=== PATIENT | female | born 1995 | race Caucasian/White ===

== ENCOUNTER 2017-08-21 15:19 | Emergency (ER) | payer OTHER | END 2017-08-21 17:29 | disposition home or self-care (01) | LOC: M ED 15:19 | DX: S61.431A Puncture wound without foreign body of right hand, initial encounter (principal); W54.0XXA Bitten by dog, initial encounter; Y92.018 Other place in single-family (private) house as the place of occurrence of the external cause; Y93.89 Activity, other specified; Y99.8 Other external cause status | CPT/HCPCS: 73130 ==

== ENCOUNTER → 2018-03-04 | Outpatient (CLI) | payer OTHER ==
[~2018-03-04] MED LIST: E-Z-GAS II EFFERVESCENT PACKET (SODIUM BICARB./CITRIC ACID/SIMETHICONE) As Ordered; E-Z-HD 98% w/w 340GM SUSP BTL As Ordered; E-Z-PAQUE 96% w/w SUSP 176GM BTL As Ordered
[2018-03-04 11:02] LABS: CONTROL LINE UCG INT CTR LINE PRESENT; URINE PREG TEST NEGATIVE (NEGATIVE)
[2018-03-04 11:26] LABS: C REACTIVE PROTEIN QUANTITATIV < 0.30 MG/DL (0.00-0.30); LIPASE 105 U/L (73-393)
[2018-03-05 10:15] LABS: TISSUE TRANSGLUTAMINASE IgA <2 U/mL (0-3)
[2018-03-12 14:33] LABS: H PYLORI STOOL ANTIGEN Negative (Negative)
[2018-03-12 14:33] LABS: CALPROTECTIN STOOL <16 ug/g (0-120); FATS NEUTRAL Normal (.); FATS TOTAL Normal (.)
== END ==
LOC: M RAD 10:13
DX: R10.84 Generalized abdominal pain (principal); R19.4 Change in bowel habit
CPT/HCPCS: 76700

== ENCOUNTER → 2018-03-24 | Outpatient (REF) | payer OTHER | LOC: M LAB REF 18:28 | DX: E04.1 Nontoxic single thyroid nodule (principal) ==

== ENCOUNTER 2018-06-06 13:18 | Emergency (ER) | payer OTHER ==
[2018-06-06] MEDS: NS 1,000 ML IV (14:15)
[2018-06-06] MEDS: MORPHINE 4 MG/ML 1ML VIAL/SYRINGE (J2270) IV (14:16)
[2018-06-06] MEDS: ONDANSETRON 4MG/2ML VIAL (J2405) IV (14:16)
[2018-06-06 14:32] LABS: BASO % 0.1 % (0.0-1.0); EOS % 0.1 % (0.0-3.0); HEMATOCRIT 35.8 % (36.0-47.0); HEMOGLOBIN 12.4 g/dl (12.0-15.5); IMMATURE GRANULOCYTE % 0.4 % (0-3.0); LYMPH # 0.9 10^3/uL (1.5-6.5); LYMPH % 12.2 % (24.0-44.0); MEAN CORPUSCULAR HEMOGLOBIN 30.5 pg (27.0-33.0); MEAN CORPUSCULAR HGB CONC 34.6 g/dl (32.0-36.5); MONO # 0.3 10^3/uL (0.0-0.8); MONO % 3.8 % (0.0-5.0); NEUTROPHILS # 6.1 10^3/uL (1.8-7.7); NEUTROPHILS % 83.4 % (36.0-66.0); PLATELET COUNT, AUTOMATED 191 10^3/uL (150-450); RED BLOOD COUNT 4.07 10^6/uL (4.00-5.40); WHITE BLOOD COUNT 7.3 10^3/uL (4.0-10.0)
[2018-06-06 15:02] LABS: CONTROL LINE HCG INT CTR LINE PRESENT; HCG, SERUM QUALITATIVE NEGATIVE (NEGATIVE)
[2018-06-06 16:25] LABS: KETONE, URINE AUTO RFX 1+ mg/dL (NEGATIVE); LEUKOCYTE ESTERASE UR AUTO RFX NEGATIVE (NEGATIVE); MUCUS, URINE RFX SMALL (NEGATIVE); NITRITE, URINE AUTO RFX NEGATIVE (NEGATIVE); RBC, URINE AUTO RFX 0 /HPF (0-3); SQUAM EPITHELIAL CELL UR AURFX 0 /HPF (0-6); WBC, URINE AUTO RFX 0 /HPF (0-3)
== END 2018-06-06 16:24 | disposition home or self-care (01) ==
LOC: M ED 13:18
DX: N92.0 Excessive and frequent menstruation with regular cycle (principal)
CPT/HCPCS: J2270

== ENCOUNTER → 2018-06-21 | Outpatient (CLI) | payer OTHER ==
[~2018-06-21] MED LIST changes: -E-Z-GAS II EFFERVESCENT PACKET (SODIUM BICARB./CITRIC ACID/SIMETHICONE) As Ordered; -E-Z-HD 98% w/w 340GM SUSP BTL As Ordered; -E-Z-PAQUE 96% w/w SUSP 176GM BTL As Ordered; +PROHANCE 279.3MG/ML 15ML VIAL (A9576) As Ordered
== END ==
LOC: M RAD 16:17
DX: N96 Recurrent pregnancy loss (principal)
CPT/HCPCS: A9576

== ENCOUNTER 2018-12-23 13:24 | Emergency (ER) | payer OTHER ==
[~2018-12-23] VITALS: Ht 167.6 cm; Wt 55.0 kg
[~2018-12-23 13:24] MED LIST changes: +ALIG4CAP PO; +APAP325T4 PO; +AUGM875T28 PO; +CBD OIL PO; +D 50CAP PO; +HYDR-3715 PO; +HYDR200T3 PO; -PROHANCE 279.3MG/ML 15ML VIAL (A9576) As Ordered; +TURM500C PO
[2018-12-23] MEDS ORDERED: HYDR-3713 PO (13:49)
[2018-12-23] MEDS ORDERED: NS 1,000 ML IV ONE (14:00)
[2018-12-23 14:38] LABS: BASO % 0.5 % (0.0-1.0); EOS # 0.1 10^3/uL (0.0-0.50); EOS % 2.3 % (0.0-3.0); HEMATOCRIT 34.6 % (36.0-47.0); LYMPH # 1.5 10^3/uL (1.5-6.5); LYMPH % 35.3 % (24.0-44.0); MEAN CORPUSCULAR HEMOGLOBIN 30.5 pg (27.0-33.0); MEAN CORPUSCULAR HGB CONC 34.7 g/dl (32.0-36.5); MEAN CORPUSCULAR VOLUME 87.8 fl (80.0-96.0); MONO # 0.3 10^3/uL (0.0-0.8); MONO % 7.4 % (0.0-5.0); NEUTROPHILS # 2.4 10^3/uL (1.8-7.7); NEUTROPHILS % 54.3 % (36.0-66.0); PLATELET COUNT, AUTOMATED 200 10^3/uL (150-450); RED BLOOD COUNT 3.94 10^6/uL (4.00-5.40); WHITE BLOOD COUNT 4.3 10^3/uL (4.0-10.0)
[2018-12-23 15:22] LABS: BLOOD UREA NITROGEN 15 MG/DL (7-18); CALCIUM LEVEL 8.5 MG/DL (8.5-10.1); CARBON DIOXIDE LEVEL 27 MEQ/L (21-32); CHLORIDE LEVEL 110 MEQ/L (98-107); CK-MB VALUE MASS < 1.0 NG/ML (<3.6); CPK CREATINE PHOSPHOKINASE 76 U/L (26-192); GLOMERULAR FILTRATION RATE > 60.0 (>60); GLUCOSE, FASTING 83 MG/DL (70-100); MAGNESIUM LEVEL 2.2 MG/DL (1.8-2.4); MB/CK RELATIVE INDEX 1.32 (< OR =4); POTASSIUM SERUM 3.8 MEQ/L (3.5-5.1); SODIUM LEVEL 141 MEQ/L (136-145); TROPONIN I < 0.02 NG/ML (< 0.10)
[2018-12-23 16:37] VITALS: BP 105/56
--- NOTE | 2018-12-23 19:49 | ECGEPIP ---
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
[2019-01-05] MEDS ORDERED: [UNRECOGNIZED DRUG - OTHER] PO (09:43)
== END 2018-12-23 16:38 | disposition home or self-care (01) ==
LOC: M ED 13:24
DX: R00.2 Palpitations (principal); R42 Dizziness and giddiness

== ENCOUNTER 2019-03-12 15:30 | Emergency (ER) | payer OTHER ==
[~2019-03-12] VITALS: Ht 167.6 cm; Wt 53.6 kg
[~2019-03-12 15:30] MED LIST changes: +HYDR-3713 PO; +[UNRECOGNIZED DRUG - OTHER] PO
[2019-03-12 15:42] VITALS: BP 115/66
[2019-03-12] MEDS ORDERED: MIDO5TA PO (15:45)
[2019-03-12 16:22] LABS: BASO % 0.3 % (0.0-1.0); EOS % 0.5 % (0.0-3.0); HEMATOCRIT 34.7 % (36.0-47.0); HEMOGLOBIN 11.8 g/dl (12.0-15.5); LYMPH # 1.2 10^3/uL (1.5-6.5); LYMPH % 18.3 % (24.0-44.0); MEAN CORPUSCULAR HEMOGLOBIN 29.4 pg (27.0-33.0); MEAN CORPUSCULAR VOLUME 86.5 fl (80.0-96.0); MONO # 0.3 10^3/uL (0.0-0.8); MONO % 4.6 % (0.0-5.0); PLATELET COUNT, AUTOMATED 221 10^3/uL (150-450); RED BLOOD COUNT 4.01 10^6/uL (4.00-5.40); WHITE BLOOD COUNT 6.6 10^3/uL (4.0-10.0)
[2019-03-12 16:52] LABS: ALBUMIN 4.6 GM/DL (3.2-5.2); ALT/SGPT 12 U/L (12-78); BILIRUBIN,DIRECT 0.2 MG/DL (0.0-0.2); BILIRUBIN,TOTAL 0.8 MG/DL (0.2-1.0); BLOOD UREA NITROGEN 13 MG/DL (7-18); CALCIUM LEVEL 9.1 MG/DL (8.5-10.1); CARBON DIOXIDE LEVEL 22 MEQ/L (21-32); CHLORIDE LEVEL 106 MEQ/L (98-107); CREATININE FOR GFR 0.78 MG/DL (0.55-1.30); GLOMERULAR FILTRATION RATE > 60.0 (>60); GLUCOSE, FASTING 85 MG/DL (70-100); LIPASE 62 U/L (73-393); POTASSIUM SERUM 3.9 MEQ/L (3.5-5.1); SODIUM LEVEL 141 MEQ/L (136-145); TOTAL PROTEIN 8.2 GM/DL (6.4-8.2)
== END 2019-03-12 17:30 | disposition left against medical advice (07) ==
LOC: M ED 15:30
DX: R10.9 Unspecified abdominal pain (principal); Z53.21 Procedure and treatment not carried out due to patient leaving prior to being seen by health care provider

== ENCOUNTER 2019-07-13 14:19 | Emergency (ER) | payer OTHER ==
[~2019-07-13] VITALS: Ht 172.7 cm; Wt 54.5 kg
[~2019-07-13 14:19] MED LIST changes: +MIDO5TA PO
[2019-07-13 15:09] LABS: BASO % 0.3 % (0.0-1.0); EOS % 0.4 % (0.0-3.0); HEMATOCRIT 34.8 % (36.0-47.0); LYMPH # 1.2 10^3/uL (1.5-5.0); LYMPH % 16.4 % (24.0-44.0); MEAN CORPUSCULAR HEMOGLOBIN 29.8 pg (27.0-33.0); MEAN CORPUSCULAR HGB CONC 34.5 g/dl (32.0-36.5); MEAN CORPUSCULAR VOLUME 86.4 fl (80.0-96.0); MONO # 0.4 10^3/uL (0.0-0.8); MONO % 5.5 % (0.0-5.0); NEUTROPHILS # 5.4 10^3/uL (1.5-8.5); NEUTROPHILS % 77.1 % (36.0-66.0); PLATELET COUNT, AUTOMATED 206 10^3/uL (150-450); RED BLOOD COUNT 4.03 10^6/uL (4.00-5.40)
[2019-07-13 15:36] LABS: ALBUMIN 4.5 GM/DL (3.2-5.2); ALT/SGPT 15 U/L (12-78); BILIRUBIN,DIRECT 0.1 MG/DL (0.0-0.2); BILIRUBIN,TOTAL 0.4 MG/DL (0.2-1.0); BLOOD UREA NITROGEN 13 MG/DL (7-18); CARBON DIOXIDE LEVEL 23 MEQ/L (21-32); CHLORIDE LEVEL 107 MEQ/L (98-107); CREATININE FOR GFR 0.76 MG/DL (0.55-1.30); GLOMERULAR FILTRATION RATE > 60.0 (>60); GLUCOSE, FASTING 104 MG/DL (70-100); LIPASE 76 U/L (73-393); POTASSIUM SERUM 3.3 MEQ/L (3.5-5.1); SODIUM LEVEL 141 MEQ/L (136-145); TOTAL PROTEIN 7.9 GM/DL (6.4-8.2)
[2019-07-13] MEDS ORDERED: IBUP80TA PO (15:50)
[2019-07-13] MEDS ORDERED: SYNT25TA PO (15:50)
[2019-07-13] MEDS ORDERED: KETAMINE HCL IV ONE (17:00)
[2019-07-13] MEDS ORDERED: NS IV ONE (17:00)
[2019-07-13] MEDS ORDERED: ONDANSETRON 4MG/2ML VIAL (J2405) IV ONE (17:45)
[2019-07-13] MEDS ORDERED: NORCO, ANEXSIA 5/325MG TABLET (HYDROcodone/ACETAMINOPHEN) PO ONE (18:15)
--- NOTE | 2019-07-13 18:30 | REPVR ---
PROCEDURE INFORMATION: Exam: US Pelvis Complete, Transabdominal Exam date and time: 07/13/2019 4:51 PM Age: 23 years old Clinical history: Pelvic pain; Additional info: Pelvic pain; ? Uterine fibroids vs endometriosis TECHNIQUE: Imaging protocol: Real-time transabdominal pelvic ultrasound with image documentation. Complete exam. COMPARISON: US PELVIC NON-OB COMPLETE 06/06/2018 2:58 PM FINDINGS: Uterus/cervix: The uterus measures 7.3 CM in length by 3.1 CM in AP dimension by 3.9 CM in transverse dimension. The endometrium is markedly thickened measuring 1.4 CM and possibly secretory endometrium. Right adnexa: The right ovary measures 3.3 CM in length by 2.5 cm thickness. There is vascular flow right ovary with no evidence of torsion. Left adnexa: The left ovary measures 4.6 CM in length by 2.5 CM in thickness. There is vascular flow of the left ovary with no evidence of torsion. There is an oval complex cyst of the left ovary which measures 3.6 CM by 2.7 CM. There is an area of low level echoes and an area of multiple septations within. Considerations would include endometrioma, hemorrhagic functional cyst, cystadenoma or cystadenocarcinoma. Sequential followup would be important. Bladder: There is a small amount of echogenic debris in the dependent portion of the urinary bladder. IMPRESSION: 1. Small amount of echogenic debris in the dependent portion of the urinary bladder could be sediment. 2. 3.6 CM by 2.7 CM complex cyst of the left ovary. Considerations include endometrioma, hemorrhagic follicular cyst, cystadenoma or cystadenocarcinoma. Recommend sequential followup exams. Electronically signed by: Hermes Dickerson On 07/13/2019 18:30:13 PM
[2019-07-13 18:50] VITALS: BP 115/73
[2019-07-13] MEDS ORDERED: NORC1TAB7 PO (19:14)
[2019-07-13] MEDS ORDERED: MACR100C43 PO (19:14)
--- NOTE | 2019-07-14 10:39 | ED PDOC ---
Post-Departure Follow-Up ft chica azevedo faxed formal report of pelvic us for fu Corry Mccoy MD Jul 14, 2019 10:39
== END 2019-07-13 19:46 | disposition home or self-care (01) ==
LOC: M ED 14:19
DX: N39.0 Urinary tract infection, site not specified (principal); N83.299 Other ovarian cyst, unspecified side; G89.29 Other chronic pain; R10.2 Pelvic and perineal pain; F41.9 Anxiety disorder, unspecified; F32.9 Major depressive disorder, single episode, unspecified; K58.9 Irritable bowel syndrome, unspecified; J45.909 Unspecified asthma, uncomplicated; I49.8 Other specified cardiac arrhythmias; Z79.899 Other long term (current) drug therapy; Z88.5 Allergy status to narcotic agent; Z88.8 Allergy status to other drugs, medicaments and biological substances
CPT/HCPCS: 76830; 76856; 80048; 80076; 81001; 83690; 84702; 85025; 87086; 93976; 94760; 96365; 96375; 99284; J2405

== ENCOUNTER 2019-10-18 06:15 | Day surgery (SDC) | payer OTHER ==
[~2019-10-18] VITALS: Ht 172.7 cm; Wt 55.7 kg
[~2019-10-18 06:15] MED LIST changes: +IBUP80TA PO; +LIDOCAINE 1% MDV 20ML VIAL SQ PRN; +MACR100C43 PO; +NORC1TAB7 PO; +NORT10CA2 PO; +SYNT25TA PO; +SYNT75TA PO
[2019-10-18 06:47] LABS: HEMATOCRIT 34.4 % (36.0-47.0); HEMOGLOBIN 11.5 g/dl (12.0-15.5)
[2019-10-18] MEDS ORDERED: METHYLENE BLUE 0.5% (5MG/ML) 10 ML AMP (PROVAYBLUE)(Q9968 PER 1MG) As Ordered ONE (06:54)
[2019-10-18] MEDS ORDERED: LR 1,000 ML IV ONE (07:00)
[2019-10-18] MEDS ORDERED: propofoL 200 MG/20 ML VIAL As Ordered ONE (07:14)
[2019-10-18] MEDS ORDERED: LIDOCAINE 2% INJ 100 MG/5 ML SDV (FOR ANES.) As Ordered ONE (07:14)
[2019-10-18] MEDS ORDERED: ROCURONIUM BROMIDE 50 MG/5 ML VIAL As Ordered ONE (07:14)
[2019-10-18] MEDS ORDERED: MIDAZOLAM INJ 2 MG/2 ML VIAL (J2250) As Ordered ONE (07:15)
[2019-10-18] MEDS ORDERED: fentaNYL 250 MCG/5 ML INJECTION (J3010) As Ordered ONE (07:15)
[2019-10-18 07:16] LABS: HCG, SERUM QUALITATIVE NEGATIVE (NEGATIVE)
[2019-10-18] MEDS ORDERED: BUPIVACAINE HCL 0.25% 30 ML VIAL As Ordered ONE (07:34)
[2019-10-18] MEDS ORDERED: dexameTHASONE 4 MG/ML 1ML VIAL (J1100) As Ordered ONE (08:06)
[2019-10-18] MEDS ORDERED: ONDANSETRON 4MG/2ML VIAL (J2405) As Ordered ONE (08:06)
[2019-10-18] MEDS ORDERED: KETOROLAC 60 MG/2 ML VIAL (J1885) As Ordered ONE (08:06)
[2019-10-18] MEDS ORDERED: METOCLOPRAMIDE INJ 10MG/2ML VIAL (J2765) As Ordered ONE (08:06)
[2019-10-18] MEDS ORDERED: ACETAMINOPHEN 1000MG 100ML IV BTL (OFIRMEV) (J0131 PER 10MG) As Ordered ONE (08:07)
[2019-10-18] MEDS ORDERED: SUGAMMADEX SODIUM 500 MG/5 ML VIAL (BRIDION) As Ordered ONE (08:41)
[2019-10-18] MEDS ORDERED: fentaNYL 100 MCG/2 ML INJECTION (J3010) As Ordered ONE (09:04)
[2019-10-18] MEDS ORDERED: LR 1,000 ML IV SCH (09:15)
[2019-10-18] MEDS ORDERED: oxyCODONE 5MG TAB PO PRN (09:15)
[2019-10-18] MEDS ORDERED: fentaNYL 100 MCG/2 ML INJECTION (J3010) IV PRN (09:15)
[2019-10-18] MEDS ORDERED: ONDANSETRON 4MG/2ML VIAL (J2405) IV PRN (09:15)
[2019-10-18 11:10] VITALS: BP 103/57
--- NOTE | 2019-10-19 10:15 | RO ---
DATE OF OPERATION: 10/18/2019 STAFF SURGEON: Cherise Mejia MD AUTO BODY CUSTOMIZER: Louis Jarrell DO CLINICAL SERVICE: Gynecology INDICATION FOR OPERATION: Venita is a 24-year-old G3, P-0-0-3-0 with a history of severe dysmenorrhea, pelvic pain, and dyspareunia, as well as recurrent loss and recently infertility. We discussed trial of Lupron, which she declined in the office as she desired definitive diagnosis of possible endometriosis given that her dysmenorrhea has taken her to the emergency room (ER) on several occasions. PREOPERATIVE DIAGNOSES: Dysmenorrhea, pelvic pain, dyspareunia, recurrent loss, infertility. POSTOPERATIVE DIAGNOSES: Dysmenorrhea, pelvic pain, dyspareunia, recurrent loss, infertility. MATERIAL FORWARDED TO THE LABORATORY: 1. Small left paratubal cyst. 2. Biopsy of peritoneum in the posterior cul-de-sac. DESCRIPTION OF FINDINGS: Laparoscopic findings included a normal-appearing liver edge and gallbladder, normal-appearing uterus, fallopian tubes, and ovaries. There was a small left para-ovarian cyst, and there was a small area of dark spots in the right aspect of the posterior cul-de-sac possibly consistent with endometriosis. So, a biopsy was performed. However, there was no other evidence of anything that looked like endometriosis within the pelvis. The posterior cul-de-sac is otherwise clear. There were no windows. There were no adhesions. No white scarring or any other evidence of endometriosis. INFECTION CLASSIFICATION: 2. ESTIMATED BLOOD LOSS: 10 mL. URINE OUTPUT: 150 mL. INTRAVENOUS (IV) FLUIDS: 1700 mL of lactated Ringer. OPERATION PERFORMED: Operative laparoscopy with chromopertubation. DESCRIPTION OF OPERATION: After obtaining informed consent, the patient was taken to the operating room. General endotracheal anesthesia was established, and she was placed in low lithotomy position. The patient was prepped and draped in usual sterile fashion. She was placed in Trendelenburg position. A Vickers catheter was placed. Portales speculum was placed in the vagina, and visualization of the cervix was obtained. Anterior lip of the cervix was grasped with a single-tooth tenaculum. Cervix was sequentially dilated using Hanks dilators. Uterus sounded to 8 cm. The ABDIFATAH uterine manipulator was placed through the cervix into the uterus and the balloon inflated. Tenaculum was removed. Site hemostasis observed, and the bivalve speculum was removed. At that point, she was taken out of Trendelenburg position, and a 5-mm incision was made in the infraumbilical fold beneath the subcutaneous tissue after anesthetizing with 0.25% Marcaine. Alethea clamp was used to spread the subcutaneous tissue. Lower abdominal wall was manually grabbed and lifted up, and an Optiview trocar was placed at a 90-degree angle. Laparoscope was advanced through the port, and intra-abdominal placement was confirmed with no injury noted below the point of entry. Continuous flow carbon dioxide began to establish a pneumoperitoneum at 15 mmHg pressure. At that point, we placed our two other trocars. We made 5-mm incisions in both right lower quadrant and left lower quadrant, placing the 5-mm trocars under direct visualization after anesthetizing with 0.25% Marcaine. Pelvic and abdominal survey were conducted beginning at the anterior cul-de-sac and anterior portion of the uterus, which were completely normal in appearance. Left and right fallopian tubes, round ligaments, broad ligaments, and ovaries were observed with normal appearance. However, there was a very small left para-ovarian cyst, which was removed with monopolar scissors and taken up out of the port. Posterior cul-de-sac was overall normal. There was a very small area of a few little dots that were black in color, possibly consistent with blood vessel versus endometriosis. So, a biopsy was performed at that area using the monopolar scissors. It was removed up through the port and sent to pathology. A couple areas on the peritoneum at that point were gently bleeding, so the monopolar scissors were used to touch those areas and cauterize, and there was complete hemostasis noted. Survey of upper abdomen revealed normal liver edge and gallbladder. The appendix was not visualized. At that point, we performed chromopertubation with normal saline with methylene blue using a large syringe attached to the ABDIFATAH uterine manipulator and pushing the dye through. Observing laparoscopically, we noted efflux of the dye from both of the fallopian tubes. The right was initial and brisk, and over time we also noted this through the left fallopian tube, as well. At that point, we suctioned out the methylene blue dye from the pelvis and irrigated copiously and suctioned all remaining fluid, and then we removed our ports under direct visualization observing them to be hemostatic and released the pneumoperitoneum prior to removing the umbilical port. Incisions were reapproximated with 4-0 Monocryl and Dermabond. All instruments were removed from the vagina. The Vickers catheter was removed. The patient was returned to supine position, and all counts were correct times two. The patient tolerated the procedure well and was taken to the recovery room after being awoken from general anesthesia in stable condition. IMAN
== END 2019-10-18 11:42 | disposition home or self-care (01) ==
LOC: M SDC 06:15
PROVIDERS: ATTEND Obstetrics & Gynecology
DX: N83.202 Unspecified ovarian cyst, left side (principal); N80.9 Endometriosis, unspecified; N97.9 Female infertility, unspecified; R10.2 Pelvic and perineal pain; N94.10 Unspecified dyspareunia; E03.9 Hypothyroidism, unspecified; K58.8 Other irritable bowel syndrome; K21.9 Gastro-esophageal reflux disease without esophagitis; Q79.60 Ehlers-Danlos syndrome, unspecified; Z88.5 Allergy status to narcotic agent; Z88.8 Allergy status to other drugs, medicaments and biological substances
CPT/HCPCS: 36415; 58350; 58662; 84703; 85014; 85018; 86850; 86900; 86901; 88305; J0131; J1100; J1885; J2250; J2405; J2765; J3010; Q9968

== ENCOUNTER 2019-11-04 16:31 | Emergency (ER) | payer OTHER ==
[~2019-11-04] VITALS: Ht 172.7 cm; Wt 54.5 kg
[~2019-11-04 16:31] MED LIST changes: -LIDOCAINE 1% MDV 20ML VIAL SQ PRN
[2019-11-04] MEDS ORDERED: HYDR-3713 PO (16:48)
[2019-11-04] MEDS ORDERED: IMIT50TA PO (16:48)
[2019-11-04] MEDS ORDERED: MIDO10TA PO (16:48)
[2019-11-04] MEDS ORDERED: ONDA-83 PO (16:48)
[2019-11-04] MEDS ORDERED: OXYC-517 PO (16:48)
[2019-11-04] MEDS ORDERED: ALBUTEROL 90 MCG/ACT 8GM HFA INHALER INH ONE (17:30)
[2019-11-04 17:37] LABS: BASO % 0.2 % (0.0-1.0); EOS % 0.1 % (0.0-3.0); HEMATOCRIT 33.7 % (36.0-47.0); HEMOGLOBIN 11.5 g/dl (12.0-15.5); LYMPH # 1.1 10^3/uL (1.5-5.0); LYMPH % 7.9 % (24.0-44.0); MEAN CORPUSCULAR HEMOGLOBIN 30.2 pg (27.0-33.0); MEAN CORPUSCULAR HGB CONC 34.1 g/dl (32.0-36.5); MEAN CORPUSCULAR VOLUME 88.5 fl (80.0-96.0); MONO # 0.5 10^3/uL (0.0-0.8); MONO % 3.3 % (0.0-5.0); NEUTROPHILS # 11.9 10^3/uL (1.5-8.5); PLATELET COUNT, AUTOMATED 194 10^3/uL (150-450); RED BLOOD COUNT 3.81 10^6/uL (4.00-5.40); WHITE BLOOD COUNT 13.5 10^3/uL (4.0-10.0)
[2019-11-04 18:01] LABS: INFLUENZA A AMPLIFICATION NEGATIVE (NEGATIVE); INFLUENZA B AMPLIFICATION NEGATIVE (NEGATIVE)
[2019-11-04] MEDS ORDERED: AZITHROMYCIN 250 MG TAB PO ONE (20:15)
[2019-11-04] MEDS ORDERED: AZIT-12 PO (20:48)
[2019-11-04] MEDS ORDERED: LEVAINH INH (20:48)
[2019-11-04] MEDS ORDERED: LEVA12INH INH (20:48)
[2019-11-04 20:55] VITALS: BP 95/65
--- NOTE | 2019-11-05 13:41 | REP ---
REASON: Dyspnea. PRIORS: None. TWO-VIEW CHEST: FINDINGS: The superior mediastinal structures are midline. The cardiac silhouette is unremarkable in size, shape, and position. The diaphragmatic surfaces of the lungs are regular, and the costophrenic angles are clear. The pulmonary yap are clear. The imaged osseous structures are intact. IMPRESSION: There is no acute cardiopulmonary disease. Unreviewed
== END 2019-11-04 20:58 | disposition home or self-care (01) ==
LOC: M ED 16:31
DX: J20.9 Acute bronchitis, unspecified (principal); J45.909 Unspecified asthma, uncomplicated; R51 Headache; E03.9 Hypothyroidism, unspecified; F41.9 Anxiety disorder, unspecified; F32.9 Major depressive disorder, single episode, unspecified; N80.9 Endometriosis, unspecified; I49.8 Other specified cardiac arrhythmias; Z79.899 Other long term (current) drug therapy; Z91.89 Other specified personal risk factors, not elsewhere classified; Z88.8 Allergy status to other drugs, medicaments and biological substances; Z88.5 Allergy status to narcotic agent

== ENCOUNTER 2020-01-18 13:33 | Outpatient (CLI) | payer OTHER ==
[~2020-01-18] VITALS: Ht 172.7 cm; Wt 54.9 kg
[~2020-01-18 13:33] MED LIST changes: +AZIT-12 PO; +IMIT50TA PO; +LEVA12INH INH; +LEVAINH INH; +MIDO10TA PO; +ONDA-83 PO; +OXYC-517 PO
[2020-01-18] MEDS ORDERED: LR 1,000 ML IV SCH (13:45)
[2020-01-18 13:47] VITALS: BP 108/61
[2020-01-18 16:10] VITALS: BP 92/48
== END 2020-01-18 16:10 | disposition home or self-care (01) ==
LOC: M INFU 13:33
PROVIDERS: ATTEND Obstetrics & Gynecology
DX: O99.411 Diseases of the circulatory system complicating pregnancy, first trimester (principal); I49.8 Other specified cardiac arrhythmias; O99.89 Other specified diseases and conditions complicating pregnancy, childbirth and the puerperium; R55 Syncope and collapse; Z3A.11 11 weeks gestation of pregnancy

== ENCOUNTER 2020-02-01 12:57 | Outpatient (CLI) | payer OTHER ==
[~2020-02-01] VITALS: Ht 172.7 cm; Wt 54.9 kg
[2020-02-01 13:00] VITALS: BP 101/57
[2020-02-01] MEDS ORDERED: LACTATED RINGER'S 1000 ML IV ONE (13:15)
[2020-02-01 15:40] VITALS: BP 95/52
== END 2020-02-01 15:40 | disposition home or self-care (01) ==
LOC: M INFU 12:57
PROVIDERS: ATTEND Obstetrics & Gynecology
DX: O26.899 Other specified pregnancy related conditions, unspecified trimester (principal); R55 Syncope and collapse; Z3A.00 Weeks of gestation of pregnancy not specified

== ENCOUNTER 2020-02-15 13:33 | Outpatient (CLI) | payer OTHER ==
[~2020-02-15] VITALS: Ht 172.7 cm; Wt 54.9 kg
[~2020-02-15 13:33] MED LIST changes: +LR 1,000 ML IV ONE
[2020-02-15 13:49] VITALS: BP 101/53
[2020-02-15 16:01] VITALS: BP 102/55
== END 2020-02-15 16:05 | disposition home or self-care (01) ==
LOC: M INFU 13:33
PROVIDERS: ATTEND Obstetrics & Gynecology
DX: O26.899 Other specified pregnancy related conditions, unspecified trimester (principal); R55 Syncope and collapse; Z3A.00 Weeks of gestation of pregnancy not specified

== ENCOUNTER 2020-02-29 13:39 | Outpatient (CLI) | payer OTHER ==
[~2020-02-29] VITALS: Ht 172.7 cm; Wt 55.5 kg
[~2020-02-29 13:39] MED LIST changes: -LR 1,000 ML IV ONE
[2020-02-29 13:40] VITALS: BP 100/59
[2020-02-29] MEDS ORDERED: THIAMINE INJection 100 MG, FOLIC ACID 1 MG, MULTIVITAMIN -ADULT INJECTION 10 ML in NS 1... IV SCH (13:45)
[2020-02-29 16:58] VITALS: BP 94/60
== END 2020-02-29 17:00 | disposition home or self-care (01) ==
LOC: M INFU 13:39
PROVIDERS: ATTEND Obstetrics & Gynecology
DX: O99.411 Diseases of the circulatory system complicating pregnancy, first trimester (principal); R55 Syncope and collapse; I49.8 Other specified cardiac arrhythmias; Z3A.11 11 weeks gestation of pregnancy
CPT/HCPCS: 96365; 96366; J3411

== ENCOUNTER 2020-03-28 13:30 | Outpatient (CLI) | payer OTHER ==
[~2020-03-28 13:30] MED LIST changes: +FOLIC ACID 1MG/0.2ML VIAL ONE; +MVI -ADULT INJECTION 10ML VIAL ONE; +THIAMINE 200MG/2ML VIAL (J3411 PER 100MG) ONE
== END 2020-03-28 16:15 | disposition home or self-care (01) ==
LOC: M INFU 13:30
PROVIDERS: ATTEND Obstetrics & Gynecology
DX: E86.0 Dehydration (principal); Q79.60 Ehlers-Danlos syndrome, unspecified
CPT/HCPCS: 96360; 96361; J3411

== ENCOUNTER 2020-04-11 13:21 | Outpatient (CLI) | payer OTHER ==
[~2020-04-11] VITALS: Ht 172.7 cm; Wt 57.7 kg
[~2020-04-11 13:21] MED LIST changes: -FOLIC ACID 1MG/0.2ML VIAL ONE; -MVI -ADULT INJECTION 10ML VIAL ONE; -THIAMINE 200MG/2ML VIAL (J3411 PER 100MG) ONE
[2020-04-11 13:30] VITALS: BP 99/54
[2020-04-11] MEDS ORDERED: MULTIVITAMIN -ADULT INJECTION 10 ML, FOLIC ACID 1 MG, THIAMINE INJection 100 MG in NS 1... IV ONE (13:30)
[2020-04-11] MEDS ORDERED: PREN1CHW PO (17:33)
[2020-04-11 17:45] VITALS: BP 96/54
== END 2020-04-11 17:45 | disposition home or self-care (01) ==
LOC: M INFU 13:21
PROVIDERS: ATTEND Obstetrics & Gynecology
DX: O99.419 Diseases of the circulatory system complicating pregnancy, unspecified trimester (principal); I49.8 Other specified cardiac arrhythmias; Z3A.00 Weeks of gestation of pregnancy not specified
CPT/HCPCS: 96365; 96366; J3411

== ENCOUNTER 2020-04-25 13:18 | Outpatient (CLI) | payer OTHER ==
[~2020-04-25] VITALS: Ht 172.7 cm; Wt 57.7 kg
[~2020-04-25 13:18] MED LIST changes: +PREN1CHW PO
[2020-04-25 13:25] VITALS: BP 96/55
[2020-04-25] MEDS ORDERED: MULTIVITAMIN -ADULT INJECTION 10 ML, FOLIC ACID 1 MG, THIAMINE INJection 100 MG in NS 1... IV ONE (13:30)
[2020-04-25 15:38] VITALS: BP 96/56
== END 2020-04-25 16:00 | disposition home or self-care (01) ==
LOC: M INFU 13:18
PROVIDERS: ATTEND Obstetrics & Gynecology
DX: O99.419 Diseases of the circulatory system complicating pregnancy, unspecified trimester (principal); R55 Syncope and collapse; I27.89 Other specified pulmonary heart diseases; Z3A.16 16 weeks gestation of pregnancy
CPT/HCPCS: 96374; J3411